=== PATIENT | male | born 1945 | race Hispanic/Latino ===

== ENCOUNTER 2018-02-17 07:28 | Day surgery (SDC) | payer MEDICARE, BC ==
[2018-02-10 17:23] VITALS: BMI 20.9
[2018-02-17] MEDS ORDERED: Sodium Chloride 0.9% 1,000 ML IV SCH (08:45)
[2018-02-17] MEDS ORDERED: Propofol 10 mg/ml Inj (20 ML) ONE ×2 (09:07→10:32)
[2018-02-17] MEDS ORDERED: ePHEDrine 50 mg/ml Inj ONE (10:23)
[2018-02-17 10:59] VITALS: RESP 14
[2018-02-17 11:13] VITALS: O2SAT 110
[2018-02-17 11:21] VITALS: BP 122/63; PULSE 70; TEMP 97.3
== END 2018-02-17 12:46 | disposition home or self-care (01) ==
LOC: ENDO 07:28
PROVIDERS: ATTEND Internal Medicine Gastroenterology
DX: K25.9 Gastric ulcer, unspecified as acute or chronic, without hemorrhage or perforation (principal); K26.9 Duodenal ulcer, unspecified as acute or chronic, without hemorrhage or perforation; K62.1 Rectal polyp; K57.30 Diverticulosis of large intestine without perforation or abscess without bleeding; K64.0 First degree hemorrhoids; K29.70 Gastritis, unspecified, without bleeding; R63.4 Abnormal weight loss; E11.9 Type 2 diabetes mellitus without complications
CPT/HCPCS: 43239; 45380; 82948; 88305; 88342; J2001; J2704; J7030